=== PATIENT | male | born 1990 | race Caucasian/White ===

== ENCOUNTER 2016-11-25 08:28 | Emergency (ER) | payer MEDICAID, OTHER ==
[~2016-11-25] VITALS: Ht 175.3 cm; Wt 81.6 kg
[2016-11-25 08:33] VITALS: BP_SYST 147
[2016-11-25] MEDS ORDERED: IPRATROPIUM/ALBUTEROL SULFATE 3 ML AMPUL.NEB ONE (08:43)
[2016-11-25] MEDS ORDERED: ALBUTEROL SULFATE 0.083% 2.5 MG/3 ML VIAL.NEB IH ONE (08:45)
[2016-11-25] MEDS ORDERED: PREDNISONE 20 MG TABLET PO ONE (08:45)
[2016-11-25] MEDS ORDERED: IPRATROPIUM BROM 0.5 MG/2.5 ML VIAL.NEB (ATROVENT) IH ONE (08:45)
== END 2016-11-25 09:26 | disposition home or self-care (01) ==
LOC: SED 08:28
DX: J45.901 Unspecified asthma with (acute) exacerbation (principal)
CPT/HCPCS: 94640; 99283; J7512